=== PATIENT | female | born 1945 | race Caucasian/White ===

== ENCOUNTER 2017-11-02 10:29 | Outpatient (CLI) | payer MEDICARE, MEDICAID | END 2017-11-02 23:59 | disposition home or self-care (01) | LOC: 64 CT 10:29 | PROVIDERS: ATTEND Nurse Practitioner Family | DX: I67.82 Cerebral ischemia (principal); G31.9 Degenerative disease of nervous system, unspecified | CPT/HCPCS: 70450 ==

== ENCOUNTER 2017-12-09 10:49 | Outpatient (CLI) | payer MEDICARE, MEDICAID | END 2017-12-09 23:59 | disposition home or self-care (01) | LOC: RAD 10:49 | PROVIDERS: ATTEND Physician Assistant | DX: R56.9 Unspecified convulsions (principal) | CPT/HCPCS: 95816 ==

== ENCOUNTER 2020-12-02 15:10 | Outpatient (CLI) | payer MEDICARE, MEDICAID ==
[2020-12-02] MEDS ORDERED: [UNRECOGNIZED DRUG - CODE] PO (15:28)
[2020-12-02] MEDS ORDERED: BUDE10.22 INH (15:28)
[2020-12-02] MEDS ORDERED: HYDR4TAB55 PO (15:28)
[2020-12-02] MEDS ORDERED: HYDR25TA4 PO (15:28)
[2020-12-02] MEDS ORDERED: DIAZ10TA5 PO (15:28)
[2020-12-02 16:00] LABS: BASOPHILS % (AUTO) 0.8 % (0-1); EOSINOPHILS # (AUTO) 0.2 X10'3 (0-0.9); EOSINOPHILS % (AUTO) 4.3 % (0-6); LYMPHOCYTES # (AUTO) 1.4 X10'3 (1.1-4.8); LYMPHOCYTES % (AUTO) 28.9 % (21-51); MEAN CORPUSCULAR HEMOGLOBIN 29.7 PG (27.0-31.0); MEAN CORPUSCULAR HGB CONC 32.6 g/dL (33.0-36.5); MEAN CORPUSCULAR VOLUME 90.9 FL (78-98); MONOCYTES # (AUTO) 0.7 X10'3 (0-0.9); MONOCYTES % (AUTO) 13.5 % (2-12); NEUTROPHILS # (AUTO) 2.6 X10'3 (1.8-7.7); NEUTROPHILS % (AUTO) 52.5 % (42-75); PRE OP HEMATOCRIT 35.6 % (35.0-45.0); PRE OP HEMOGLOBIN 11.6 g/dL (12.0-16.0); PRE OP PLATELET COUNT 184 X10'3 (140-440); RED BLOOD COUNT 3.92 X10'6 (4.20-5.60); RED CELL DISTRIBUTION WIDTH 14.1 % (11.5-14.5)
[2020-12-02 16:13] LABS: ALBUMIN 3.6 G/DL (3.4-5.0); BLOOD UREA NITROGEN 12 MG/DL (7-18); CALCIUM 9.2 MG/DL (8.5-10.1); CHLORIDE 96 MMOL/L (99-107); CREATININE 0.63 MG/DL (0.40-0.90); PRE OP ALT 33 U/L (30-65); PRE OP ANION GAP 4 (8-16); PRE OP AST 23 U/L (10-37); PRE OP BILIRUB, TOTAL 0.3 MG/DL (0.0-1.0); PRE OP GLUCOSE 96 MG/DL (70-104); PRE OP POTASSIUM 3.6 MMOL/L (3.4-5.1); PRE OP SODIUM 138 MMOL/L (135-145); TOTAL CARBON DIOXIDE 37.7 MMOL/L (24-32); TOTAL PROTEIN 7.1 G/DL (6.4-8.2); eGFR > 90 ML/MIN
[2020-12-02 16:25] LABS: ALKALINE PHOSPHATASE 112 IU/L (46-116)
== END 2020-12-02 23:59 | disposition home or self-care (01) ==
LOC: PRE-OP 15:10 → EDSTATUS 12-09 08:15
PROVIDERS: ATTEND Orthopaedic Surgery Hand Surgery
DX: Z01.812 Encounter for preprocedural laboratory examination (principal); G56.21 Lesion of ulnar nerve, right upper limb; G56.03 Carpal tunnel syndrome, bilateral upper limbs; M19.041 Primary osteoarthritis, right hand; I70.0 Atherosclerosis of aorta; M47.819 Spondylosis without myelopathy or radiculopathy, site unspecified; M95.4 Acquired deformity of chest and rib; R00.1 Bradycardia, unspecified; I51.7 Cardiomegaly; Z72.0 Tobacco use; Z20.822 Contact with and (suspected) exposure to COVID-19
CPT/HCPCS: 36415; 71046; 80053; 85025; 93005; U0003

== ENCOUNTER 2021-06-16 06:42 | Day surgery (SDC) | payer MEDICARE, MEDICAID ==
[2021-06-10 14:36] LABS: BASOPHILS % (AUTO) 0.6 % (0-1); EOSINOPHILS # (AUTO) 0.1 X10'3 (0-0.9); EOSINOPHILS % (AUTO) 2.2 % (0-6); LYMPHOCYTES # (AUTO) 1.3 X10'3 (1.1-4.8); LYMPHOCYTES % (AUTO) 21.3 % (21-51); MEAN CORPUSCULAR HEMOGLOBIN 30.8 PG (27.0-31.0); MEAN CORPUSCULAR HGB CONC 33.1 g/dL (33.0-36.5); MEAN CORPUSCULAR VOLUME 93.2 FL (78-98); MEAN PLATELET VOLUME 8.7 FL (7.4-10.4); MONOCYTES # (AUTO) 0.7 X10'3 (0-0.9); MONOCYTES % (AUTO) 12.4 % (2-12); NEUTROPHILS # (AUTO) 3.8 X10'3 (1.8-7.7); NEUTROPHILS % (AUTO) 63.5 % (42-75); PRE OP HEMATOCRIT 38.8 % (35.0-45.0); PRE OP HEMOGLOBIN 12.8 g/dL (12.0-16.0); PRE OP PLATELET COUNT 217 X10'3 (140-440); RED BLOOD COUNT 4.16 X10'6 (4.20-5.60); RED CELL DISTRIBUTION WIDTH 14.6 % (11.5-14.5)
[2021-06-10 14:50] LABS: ALBUMIN 3.7 G/DL (3.4-5.0); ALKALINE PHOSPHATASE 312 IU/L (46-116); BLOOD UREA NITROGEN 28 MG/DL (7-18); BUN/CREATININE RATIO 34.6 (6.6-38.0); CALCIUM 9.2 MG/DL (8.5-10.1); CHLORIDE 100 MMOL/L (99-107); CREATININE 0.81 MG/DL (0.40-0.90); PRE OP ANION GAP 4 (8-16); PRE OP AST 104 U/L (10-37); PRE OP BILIRUB, TOTAL 0.5 MG/DL (0.0-1.0); PRE OP GLUCOSE 112 MG/DL (70-104); PRE OP POTASSIUM 4.5 MMOL/L (3.4-5.1); PRE OP SODIUM 140 MMOL/L (135-145); TOTAL CARBON DIOXIDE 35.7 MMOL/L (24-32); TOTAL PROTEIN 7.4 G/DL (6.4-8.2); eGFR 69 ML/MIN
[2021-06-10 14:52] LABS: PRE OP ALT 168 U/L (30-65)
[~2021-06-16] VITALS: Ht 154.9 cm; Wt 47.9 kg
[~2021-06-16 06:42] MED LIST: ATOR40TA72 PO; CHOL20004 PO; DIAZ10TA5 PO; HYDR-3972 PO; HYDR25TA4 PO; HYDR4TAB55 PO; MULT-1085 PO; OMEG1CAP13 PO; cefazolin/dext.iso 2gm/100ml IV ONE; famotidine 20mg tablet PO ONE; ringers solution, lacted 1,000 ML IV SCH
[2021-06-16 07:00] VITALS: BP 166/77
[2021-06-16] MEDS ORDERED: BUPIVAcaine/PF 2.5mg/ml (0.25%) 10ml vial ONE ×2 (07:14→09:53)
[2021-06-16] MEDS ORDERED: morphine 4 MG/ML inj SYRINge IV PRN ×2 (07:35→07:45)
[2021-06-16] MEDS ORDERED: morphine 4 MG/ML inj SYRINge ONE (07:38)
[2021-06-16] MEDS ORDERED: proCHLORperazine 10 MG/2 ml inj IV PRN (07:45)
[2021-06-16] MEDS ORDERED: morphine 2 MG/ML inj. syringe IV PRN (07:45)
[2021-06-16] MEDS ORDERED: acetaminophen 1,000mg/100ml IV 100 ML IV PRN (07:45)
[2021-06-16] MEDS ORDERED: labetalol 20mg/4ml (5mg/ml) syringe IV PRN (07:45)
[2021-06-16] MEDS ORDERED: ringers solution, lacted 1,000 ML IV SCH (07:45)
[2021-06-16] MEDS ORDERED: ondansetron/PF 4mg/2ml inj IV PRN (07:45)
[2021-06-16] MEDS ORDERED: meperidine/PF 25mg/ml syringe IV PRN ×3 (07:45)
[2021-06-16] MEDS ORDERED: hydrALAZINE 20mg/ml inj. IV PRN (07:45)
[2021-06-16 09:18] VITALS: BP 166/77
[2021-06-16] MEDS ORDERED: midazolam 1 mg/ML 2ml injection ONE (09:34)
[2021-06-16] MEDS ORDERED: fentaNYL/PF 50MCG/1 ML 2ML syringe ONE (09:34)
[2021-06-16 10:02] VITALS: BP 116/94
--- NOTE | 2021-06-16 10:02 | NUR ---
Received from OR via , accompanied by Anesthesiologist DR GARDNER and report given by Anesthesiolgist. AWAKENS TO VOICE. VITALS STABLE. DRESSINGS DI. DIONTE PAIN. FINGERS COOL AND PINK.
[2021-06-16] MEDS ORDERED: propofol inj 20 ML IV ONE (10:03)
[2021-06-16] MEDS ORDERED: LIDOcaine 0.5% (5mg/ml) 50ml vial ONE (10:03)
[2021-06-16 10:12] VITALS: BP 142/73
[2021-06-16 10:22] VITALS: BP 141/70
[2021-06-16 10:32] VITALS: BP 137/66
--- NOTE | 2021-06-16 10:42 | NUR ---
AWAKE AND ORIENTED. VITALS STABLE. DRESSINGS DI. DIONTE PAIN. HOME WITH HER SPOUSE AT THIS TIME.
== END 2021-06-16 10:42 | disposition home or self-care (01) ==
LOC: PAS 06:42
PROVIDERS: ATTEND Orthopaedic Surgery Hand Surgery
DX: G56.01 Carpal tunnel syndrome, right upper limb (principal); G56.21 Lesion of ulnar nerve, right upper limb; M19.041 Primary osteoarthritis, right hand; M19.042 Primary osteoarthritis, left hand; M17.11 Unilateral primary osteoarthritis, right knee; G47.33 Obstructive sleep apnea (adult) (pediatric); J44.9 Chronic obstructive pulmonary disease, unspecified; I10 Essential (primary) hypertension; Z20.822 Contact with and (suspected) exposure to COVID-19; Z79.899 Other long term (current) drug therapy; Z88.0 Allergy status to penicillin; Z88.8 Allergy status to other drugs, medicaments and biological substances; Z88.5 Allergy status to narcotic agent; Z72.89 Other problems related to lifestyle; Z91.040 Latex allergy status; Z90.710 Acquired absence of both cervix and uterus; Z98.890 Other specified postprocedural states; Z87.891 Personal history of nicotine dependence; Z80.3 Family history of malignant neoplasm of breast; Z80.0 Family history of malignant neoplasm of digestive organs
CPT/HCPCS: 36415; 64718; 64721; 80053; 82948; 85025; J2001; J2250; J2270; J2704; J3010; J3490; U0003; U0005; Z7506; Z7512; A4215; A6449; J7120

== ENCOUNTER 2023-10-11 06:17 | Day surgery (SDC) | payer MEDICARE, MEDICAID ==
[2023-10-06 15:06] LABS: BASOPHILS % (AUTO) 0.8 % (0-1); EOSINOPHILS # (AUTO) 0.2 X10'3 (0-0.9); EOSINOPHILS % (AUTO) 3.7 % (0-6); LYMPHOCYTES # (AUTO) 1.6 X10'3 (1.1-4.8); LYMPHOCYTES % (AUTO) 26.3 % (21-51); MEAN CORPUSCULAR HEMOGLOBIN 29.9 PG (27.0-31.0); MEAN CORPUSCULAR HGB CONC 32.5 g/dL (33.0-36.5); MEAN CORPUSCULAR VOLUME 91.8 FL (78-98); MONOCYTES # (AUTO) 0.8 X10'3 (0-0.9); MONOCYTES % (AUTO) 13.1 % (2-12); NEUTROPHILS # (AUTO) 3.3 X10'3 (1.8-7.7); NEUTROPHILS % (AUTO) 56.1 % (42-75); PRE OP HEMATOCRIT 37.6 % (35.0-45.0); PRE OP HEMOGLOBIN 12.2 g/dL (12.0-16.0); PRE OP PLATELET COUNT 235 X10'3 (140-440); PRE OP WHITE BLOOD COUNT 5.9 10'3 (4.8-10.8); RED CELL DISTRIBUTION WIDTH 13.2 % (11.5-14.5)
[2023-10-06 15:15] LABS: ALBUMIN 3.6 G/DL (3.4-5.0); ALBUMIN/GLOBULIN RATIO 0.9 (1.1-1.5); ALKALINE PHOSPHATASE 130 IU/L (46-116); BLOOD UREA NITROGEN 17 MG/DL (7-18); BUN/CREATININE RATIO 21.5 (10.0-20.0); CALCIUM 9.7 MG/DL (8.5-10.1); CHLORIDE 101 MMOL/L (99-107); CREATININE 0.79 MG/DL (0.40-0.90); PRE OP ALT 25 U/L (30-65); PRE OP ANION GAP 8 (8-16); PRE OP AST 22 U/L (10-37); PRE OP BILIRUB, TOTAL 0.3 MG/DL (0.0-1.0); PRE OP GLUCOSE 132 MG/DL (70-104); PRE OP POTASSIUM 3.6 MMOL/L (3.4-5.1); PRE OP SODIUM 140 MMOL/L (135-145); TOTAL CARBON DIOXIDE 31.3 MMOL/L (24-32); TOTAL PROTEIN 7.6 G/DL (6.4-8.2); eGFR 71 ML/MIN
[2023-10-11] VITALS (9 sets, daily range): BP systolic 133–149; BP diastolic 64–78; PULSE 51–63; RESP 14–16; TEMP 97.5; O2SAT 93–98
[~2023-10-11] VITALS: Ht 154.9 cm; Wt 63.1 kg
[~2023-10-11 06:17] MED LIST changes: -CHOL20004 PO; +CYCL-1 PO; -DIAZ10TA5 PO; +DOCUMENT DATE & TIME OF BETA-BLOCKER PO ONE; +HYDR-3968 PO; -HYDR-3972 PO; -HYDR25TA4 PO; -HYDR4TAB55 PO; +LOSA100T58 PO; -MULT-1085 PO; +NIFE90TA70 PO; -OMEG1CAP13 PO; +PROP20TA6 PO; -cefazolin/dext.iso 2gm/100ml IV ONE; +clindamycin-Cleocin 900mg/D5W 50 ML IV ONE
[2023-10-11] MEDS ORDERED: LIDOcaine 1% 30ml preserv. free vial ONE (08:00)
[2023-10-11] MEDS ORDERED: BUPIVAcaine/PF 2.5mg/ml (0.25%) 10ml vial ONE (09:04)
[2023-10-11] MEDS ORDERED: midazolam 1 mg/ML 2ml injection ONE ×2 (09:13→09:40)
[2023-10-11] MEDS ORDERED: ketorolac trometh. 30mg/ml inj. ONE (09:13)
[2023-10-11] MEDS ORDERED: fentaNYL/PF 50MCG/1 ML 2ML syringe ONE (09:22)
[2023-10-11] MEDS ORDERED: BUPIVAcaine/PF 2.5mg/ml (0.25%) 10ml vial IJ ONE (09:30)
[2023-10-11] MEDS ORDERED: meperidine/PF 25mg/ml syringe ONE (10:17)
[2023-10-11] MEDS ORDERED: HYDROcodone/acetaminophen 10/325mg tab PO ONE (10:50)
== END 2023-10-11 11:05 | disposition home or self-care (01) ==
LOC: PAS 06:17
PROVIDERS: ATTEND Orthopaedic Surgery Hand Surgery
DX: G56.01 Carpal tunnel syndrome, right upper limb (principal); M72.0 Palmar fascial fibromatosis [Dupuytren]; M65.341 Trigger finger, right ring finger; M65.331 Trigger finger, right middle finger; I10 Essential (primary) hypertension; G47.30 Sleep apnea, unspecified; E78.5 Hyperlipidemia, unspecified; M06.9 Rheumatoid arthritis, unspecified; G89.29 Other chronic pain; M19.041 Primary osteoarthritis, right hand; M19.042 Primary osteoarthritis, left hand; M17.11 Unilateral primary osteoarthritis, right knee; F41.9 Anxiety disorder, unspecified; Z87.891 Personal history of nicotine dependence; Z87.442 Personal history of urinary calculi; Z85.42 Personal history of malignant neoplasm of other parts of uterus; Z88.0 Allergy status to penicillin; Z88.5 Allergy status to narcotic agent; Z88.8 Allergy status to other drugs, medicaments and biological substances; Z91.040 Latex allergy status; Z79.899 Other long term (current) drug therapy; Z90.710 Acquired absence of both cervix and uterus; Z98.890 Other specified postprocedural states; Z85.038 Personal history of other malignant neoplasm of large intestine; Z72.89 Other problems related to lifestyle; Z96.649 Presence of unspecified artificial hip joint
CPT/HCPCS: 26055; 26121; 36415; 64721; 80053; 82948; 85025; 93005; J1885; J2175; J2250; J3010; J3490; J7030; J7120; Z7506; Z7512; A4215; A4565

== ENCOUNTER 2025-06-07 10:07 | Outpatient (CLI) | payer MEDICARE, MEDICAID ==
[~2025-06-07 10:07] MED LIST changes: -DOCUMENT DATE & TIME OF BETA-BLOCKER PO ONE; -clindamycin-Cleocin 900mg/D5W 50 ML IV ONE; -famotidine 20mg tablet PO ONE; -ringers solution, lacted 1,000 ML IV SCH
--- NOTE | 2025-06-07 13:06 | RADIOLOGY REPORT ---
[facility] EXAMINATION: MR MRI HEAD INDICATION: COGNITIVE IMPAIRMENT COMPARISON: None TECHNIQUE: Multiplanar, multisequence magnetic resonance imaging of the brain was performed without the use of intravenous contrast. FINDINGS: No evidence of acute or remote infarct. No intracranial hemorrhage. No mass effect. There is periventricular/deep white matter T2/FLAIR hyperintensity is nonspecific, but most commonly associated with chronic microvascular disease. The ventricles and sulci are normal in size for age. Clear basal cisterns. Flow voids in the major intracranial vessels are maintained. No abnormality of the orbits. Paranasal sinuses and mastoid air cells are clear. No abnormality of the visualized osseous structures and extracranial soft tissues. IMPRESSION: No acute infarct, intracranial hemorrhage, mass effect, or hydrocephalus.
== END 2025-06-07 23:59 | disposition home or self-care (01) ==
LOC: MRI02 10:07
PROVIDERS: ATTEND Family Medicine
DX: I67.89 Other cerebrovascular disease (principal); R41.89 Other symptoms and signs involving cognitive functions and awareness
CPT/HCPCS: 70551